=== PATIENT | female | born 1960 | race Caucasian/White ===

== ENCOUNTER → 2022-01-04 | Outpatient (CLI) | payer OTHER ==
[2022-01-05 14:56] LABS: Stool Occult Bld Immuno 1 Negative (NEGATIVE)
== END | disposition home or self-care (01) ==
LOC: LAB SHORT 10:20 → LAB 10:20
PROVIDERS: Family Medicine
DX: Z12.11 Encounter for screening for malignant neoplasm of colon (principal); Z12.12 Encounter for screening for malignant neoplasm of rectum
CPT/HCPCS: 82274

== ENCOUNTER → 2025-06-03 | Outpatient (CLI) | payer OTHER ==
[2025-06-03 21:56] LABS: Creatinine, Urine Random 128.0 mg/dL (27.00-270.00); Microalb/Creat Ratio UR, Rand 6.914 mg/g (0.000-30.000); Microalbumin, Random Urine 8.85 mg/L (0.000-20.000)
== END | disposition home or self-care (01) ==
LOC: LAB 17:37 → LAB SHORT 17:37
PROVIDERS: Family Medicine
DX: M70.61 Trochanteric bursitis, right hip (principal)
CPT/HCPCS: 82043; 82570